=== PATIENT | female | born 1995 | race Caucasian/White ===

== ENCOUNTER 2017-05-07 23:18 | Emergency (ER) | payer MEDICAID ==
[2017-05-08 00:10] LABS: microscopic required? YES; urine erythrocyte 2+ (NEGATIVE)
[2017-05-08 00:13] LABS: BASOPHIL % 0.2 % (0-2); PLATELET COUNT 229 x10^3mcL (130-400); RED CELL DISTRIBUTION WIDTH 14.1 % (11.5-14.5)
[2017-05-08 00:31] LABS: ALBUMIN 4.2 g/dL (3.4-5.0); ALKALINE PHOSPHATASE 59 U/L (46-116); ALT/SGPT 16 U/L (14-59); AMYLASE 33 U/L (25-115); AST/SGOT 13 U/L (15-37); BILIRUBIN TOTAL 0.5 mg/dL (0.20-1.00); CALCIUM 9.2 mg/dL (8.5-10.1); CARBON DIOXIDE 22.7 mmol/L (21-32); CHLORIDE SERUM 103 mmol/L (98-107); CREATININE SERUM 1.1 mg/dL (0.6-1.0); GFR1 > 60 mL/min; GLUCOSE SERUM 121 mg/dL (74-106); LIPASE 95 IU/L (73-393); POTASSIUM SERUM 3.6 mmol/L (3.5-5.1); SODIUM SERUM 138 mmol/L (136-145); TOTAL PROTEIN, SERUM 8.2 g/dL (6.4-8.2)
[2017-05-08 01:27] VITALS: BP 115/76
== END 2017-05-08 01:27 | disposition home or self-care (01) ==
LOC: ED 23:18
PROVIDERS: Emergency Medicine
DX: R10.30 Lower abdominal pain, unspecified (principal)
CPT/HCPCS: 36415; Q0092

== ENCOUNTER 2018-01-10 16:57 | Emergency (ER) | payer MEDICAID ==
[~2018-01-10] VITALS: Ht 165.1 cm; Wt 68.0 kg
[2018-01-10 17:00] VITALS: Ht 165.1 cm; Wt 68.0 kg
[2018-01-10 19:03] VITALS: BP 135/73
== END 2018-01-10 19:03 | disposition home or self-care (01) ==
LOC: ED 16:57
DX: J06.9 Acute upper respiratory infection, unspecified (principal); B34.9 Viral infection, unspecified
CPT/HCPCS: Q0162

== ENCOUNTER 2018-01-15 12:02 | Emergency (ER) | payer MEDICAID ==
[~2018-01-15] VITALS: Ht 175.3 cm; Wt 72.1 kg
[2018-01-15 12:07] VITALS: Ht 175.3 cm; Wt 72.1 kg
[2018-01-15 12:56] LABS: BASOPHIL % 0.1 % (0-2); PLATELET COUNT 284 x10^3mcL (130-400); RED CELL DISTRIBUTION WIDTH 13.2 % (11.5-14.5)
[2018-01-15 13:06] LABS: CALCIUM 9.5 mg/dL (8.5-10.1); CARBON DIOXIDE 27.5 mmol/L (21-32); CHLORIDE SERUM 100 mmol/L (98-107); CREATININE SERUM 1.1 mg/dL (0.6-1.0); GFR1 > 60 mL/min; GLUCOSE SERUM 113 mg/dL (74-106); POTASSIUM SERUM 5.3 mmol/L (3.5-5.1); SODIUM SERUM 136 mmol/L (136-145)
[2018-01-15 13:12] LABS: ALBUMIN 3.8 g/dL (3.4-5.0); ALKALINE PHOSPHATASE 71 U/L (46-116); ALT/SGPT 298 U/L (14-59); AMYLASE 27 U/L (25-115); AST/SGOT 104 U/L (15-37); BILIRUBIN TOTAL 0.96 mg/dL (0.20-1.00); LIPASE 66 IU/L (73-393)
[2018-01-15 13:14] LABS: TOTAL PROTEIN, SERUM 8.8 g/dL (6.4-8.2)
[2018-01-15 13:28] LABS: UA SPECIFIC GRAVITY 1.015 (1.005-1.035); microscopic required? YES; urine erythrocyte 3+ (NEGATIVE)
[2018-01-15 15:41] VITALS: BP 110/74
== END 2018-01-15 15:41 | disposition home or self-care (01) ==
LOC: ED 12:02
PROVIDERS: Specialist
DX: N39.0 Urinary tract infection, site not specified (principal)
CPT/HCPCS: J0696; J3490; J7030; Q9967

== ENCOUNTER 2019-03-14 16:37 | Emergency (ER) | payer MEDICAID ==
[~2019-03-14] VITALS: Ht 175.3 cm; Wt 66.7 kg
[2019-03-14 17:19] VITALS: BP 122/74; Ht 175.3 cm; Wt 66.7 kg
== END 2019-03-14 19:30 | disposition home or self-care (01) ==
LOC: ED 16:37
DX: M79.10 Myalgia, unspecified site (principal); M54.6 Pain in thoracic spine; N39.0 Urinary tract infection, site not specified; F41.9 Anxiety disorder, unspecified

== ENCOUNTER 2019-06-20 17:01 | Emergency (ER) | payer MEDICAID ==
[~2019-06-20] VITALS: Ht 175.3 cm; Wt 68.9 kg
[2019-06-20 17:06] VITALS: Ht 175.3 cm; Wt 68.9 kg
[2019-06-20 18:01] LABS: UA SPECIFIC GRAVITY <=1.005 (1.005-1.035); microscopic required? YES; urine erythrocyte 3+ (NEGATIVE)
[2019-06-20 18:56] LABS: BASOPHIL % 0.5 % (0-2); PLATELET COUNT 220 x10^3mcL (130-400); RED CELL DISTRIBUTION WIDTH 13.9 % (11.5-14.5)
[2019-06-20 19:05] LABS: CALCIUM 9.6 mg/dL (8.5-10.1); CARBON DIOXIDE 22.1 mmol/L (21-32); CHLORIDE SERUM 105 mmol/L (98-107); CREATININE SERUM 1.1 mg/dL (0.6-1.0); GFR1 > 60 mL/min; GLUCOSE SERUM 73 mg/dL (74-106); POTASSIUM SERUM 3.4 mmol/L (3.5-5.1); SODIUM SERUM 139 mmol/L (136-145)
[2019-06-20 19:10] LABS: ALKALINE PHOSPHATASE 50 U/L (46-116); ALT/SGPT 17 U/L (14-59); AST/SGOT 10 U/L (15-37); BILIRUBIN TOTAL 0.57 mg/dL (0.20-1.00)
[2019-06-20 19:14] LABS: TOTAL PROTEIN, SERUM 8.7 g/dL (6.4-8.2)
[2019-06-20 20:25] VITALS: BP 120/80
== END 2019-06-20 20:23 | disposition home or self-care (01) ==
LOC: ED 17:01
PROVIDERS: Emergency Medicine
DX: R10.31 Right lower quadrant pain (principal); F41.9 Anxiety disorder, unspecified
CPT/HCPCS: 36415